=== PATIENT | female | born 1990 | race Caucasian/White ===

== ENCOUNTER 2019-06-26 09:00 | Inpatient (IN) | payer BC ==
[~2019-06-26] VITALS: Ht 172.7 cm; Wt 106.8 kg
[2019-06-26 09:27] LABS: Source, Urine Clean Catch
[2019-06-26 09:32] LABS: Bilirubin, Urine Neg (Neg); Blood, Urine 2+ (Neg); Glucose Qualitative, Urine Neg (Neg); Ketones, Urine Neg (Neg); Leukocyte Esterase, Urine Neg (Neg); Nitrite, Urine Neg (Neg); Protein, Urine Neg (Neg); Urobilinogen, Urine NORM (Normal)
[2019-06-26 09:44] LABS: Appearance, Urine Clear (Clear); Color, Urine Yellow (P-Yellow)
[2019-06-26 09:48] LABS: Bacteria Few /hpf; Red Blood Cells, Urine 0-2 /hpf (0-2); Squamous Epithelial Cells Mod /hpf (Few)
--- NOTE | 2019-06-26 10:00 | NUR ---
PT ARRIVES TO [facility] WITH , VE 5CM, ADMITTED PER RADHA MARTIN. PT UP AMBULATING IN HALLS WHEN I ASSUMED CARE. REPORTS PAIN 5/10, BIANCA WELL. PLANS EPIDURAL.
[2019-06-26 11:09] LABS: BASOPHILS ABSOLUTE AUTO 0.02 K/mm3 (0.00-0.23); BASOPHILS PERCENT AUTO 0 % (0-2); EOSINOPHILS ABSOLUTE AUTO 0.03 K/mm3 (0.00-0.68); EOSINOPHILS PERCENT AUTO 0 % (0-6); Hematocrit 36.6 % (33.0-51.0); Hemoglobin 12.1 g/dL (11.5-16.0); IMMATURE GRAN ABSOLUTE AUTO 0.12 K/mm3 (0.00-0.10); IMMATURE GRAN PERCENT AUTO 1 % (0-1); LYMPHOCYTES ABSOLUTE AUTO 1.72 K/mm3 (0.84-5.20); LYMPHOCYTES PERCENT AUTO 14 % (21-46); MONOCYTES ABSOLUTE AUTO 0.69 K/mm3 (0.16-1.47); MONOCYTES PERCENT AUTO 6 % (4-13); Mean Corpuscular HGB 30.3 pg (26.0-34.0); Mean Corpuscular HGB Conc 33.1 g/dL (31.5-36.5); Mean Corpuscular Volume 92 fL (80-100); Mean Platelet Volume 11.4 fL (9.1-12.4); NEUTROPHILS ABSOLUTE AUTO 9.35 K/mm3 (1.96-9.15); NEUTROPHILS PERCENT AUTO 78 % (41-73); Platelet Count 235 K/mm3 (150-400); RDW Coefficient Variation 13.1 % (11.7-14.2); RDW Standard Deviation 42.2 fL (35.1-46.3); White Blood Cell Count 11.93 K/mm3 (4.00-11.30)
[2019-06-26 20:15] LABS: PCO2 Cord - Arterial 59.4 mmHg (40-50); PO2 Cord - Arterial < 13 mmHg (16-20); pH Cord - Arterial 7.26 (7.28-7.35)
[2019-06-26 20:17] LABS: PCO2 Cord - Venous 47.5 mmHg (40-50); PO2 Cord - Venous 16.9 mmHg (28-32); pH Umbilical Cord - Venous 7.33 (7.26-7.35)
--- NOTE | 2019-06-26 20:45 | NUR ---
PACU NOTE: 2044- FF @ U, SCANT 2099- FF @ U, SCANT 2114- FF @ U, SCANT 2129- FF @ U, SCANT
--- NOTE | 2019-06-26 20:52 | NUR ---
PT TO PACU, DR. PORTER PULLED EPIDURAL CATH IN OR.
[2019-06-27 05:43] LABS: Hematocrit 28.6 % (33.0-51.0); Hemoglobin 9.4 g/dL (11.5-16.0); Mean Corpuscular HGB 30.6 pg (26.0-34.0); Mean Corpuscular HGB Conc 32.9 g/dL (31.5-36.5); Mean Corpuscular Volume 93 fL (80-100); Mean Platelet Volume 11.2 fL (9.1-12.4); Platelet Count 201 K/mm3 (150-400); RDW Coefficient Variation 13.3 % (11.7-14.2); RDW Standard Deviation 44.9 fL (35.1-46.3); Red Blood Cell Count 3.07 M/mm3 (3.80-5.20); White Blood Cell Count 12.49 K/mm3 (4.00-11.30)
--- NOTE | 2019-06-27 08:15 | NUR ---
ASSUMED CARE PT LYING IN BED BONDING WELL WITH NB, STATES PAIN HAS BEEN WELL CONTROLLED POSTOPERATIVELY, CURRENTLY RATES PAIN 2/10, PERICARE DONE, PADS CHANGED, ASSESSMENT WNL, ASSISTED WITH BREAST FEEDING, PT RELAXED GOOD LATCH ON LEFT BREAST, AT BEDSIDE SUPPORTIVE, CALL LIGHT WITHIN REACH INSTRUCTION GIVEN NOT TO GET OUT OF BED WITHOUT STAFF IN ROOM, PT VERBALIZED UNDERSTANDING
--- NOTE | 2019-06-27 09:44 | NUR ---
ASSUMED PT CARE. IN TO DO DANILO CARE. PT REQUESTED TO KEEP F/C IN UNTIL AFTER A NAP. WILL PLAN TO MEDICATE 1115, THEN PT PLANS TO SHOWER THIS AFTERNOON. ORAL CARE DONE. PADS AND UNDERWEAR PUT ON WITH HELP FROM RN. STATES PAIN IS WELL CONTROLLED WITH ORAL MEDS.
--- NOTE | 2019-06-27 10:00 | NUR ---
REPT TO Aislinn RUIZ RN
--- NOTE | 2019-06-27 12:00 | NUR ---
REPORT TO RADHA CADENA. NO ACTUE CHANGES.
--- NOTE | 2019-06-27 12:30 | NUR ---
assumed pt care from nery fish
--- NOTE | 2019-06-27 19:30 | NUR ---
PATIENT SITTING UP IN CHAIR NEXT TO BED VISITING WITH FAMILY AND EATING. PATIENT REQUESTS THAT I COME BACK TO DO HER ASSESSMENT WHEN SHE IS FINISHED.
[2019-06-28] MEDS ORDERED: Percocet 5-3251 EACH PO (14:21)
[2019-06-28] MEDS ORDERED: IBUP800 PO (14:21)
--- NOTE | 2019-06-28 15:51 | NUR ---
ASSUMED CARE RECIEVED CARE FROM CHANTALE RN AND ASSUMED CARE OF PT AT 1350
--- NOTE | 2019-06-28 16:20 | NUR ---
PPFU PATIENT DECLINES HAVING A PPFU APPOINTMENT AT THIS TIME.
--- NOTE | 2019-06-28 17:21 | NUR ---
DISCHARGE PATIENT TEACHING COMPLETE, PT VERBALIZES UNDERSTANDING AND HAS NO QUESTIONS AT THIS TIME.
--- NOTE | 2019-07-02 10:34 | NUR ---
LATE ENTRY- PRE-OP INTERVENTIONS COMPLETED ON 06-26-19 @ 2520. CHANGED SHIFT.
== END 2019-06-28 17:28 | disposition home or self-care (01) | DRG 788 ==
LOC: OBS 09:00 → BC 09:02 → OBS 09:45 → BC 09:50
PROVIDERS: Obstetrics & Gynecology; ADMIT Nurse Practitioner Obstetrics & Gynecology
PROC: 10907ZC Drainage of Amniotic Fluid, Therapeutic from Products of Conception, Via Natural or Artificial Opening (ICD-10-PCS; 2019-06-26)
PROC: 10H07YZ Insertion of Other Device into Products of Conception, Via Natural or Artificial Opening (ICD-10-PCS; 2019-06-26)
PROC: 3E0R3BZ Introduction of Anesthetic Agent into Spinal Canal, Percutaneous Approach (ICD-10-PCS; 2019-06-26)
PROC: 10D00Z1 Extraction of Products of Conception, Low, Open Approach (ICD-10-PCS; principal; 2019-06-26 19:30)
DX: O99.824 Streptococcus B carrier state complicating childbirth (principal); O62.1 Secondary uterine inertia; Z3A.40 40 weeks gestation of pregnancy; Z37.0 Single live birth
CPT/HCPCS: 36415; 51702; 59025; 81001; 82803; 85025; 85027; 86850; 86900; 86901; 90686; J0290; J0690; J1885; J2001; J2405; J2590; J2765; J3010; J7120